=== PATIENT | male | born 1965 | race Caucasian/White ===

== ENCOUNTER 2019-09-01 04:54 | Emergency (ER) | payer SELFPAY ==
[~2019-09-01] VITALS: Ht 160 cm; Wt 85.0 kg
[2019-09-01 05:05] VITALS: BP 150/98
[2019-09-01] MEDS ORDERED: PREDNISONE 10MG TABLET PO ONE (05:30)
[2019-09-01] MEDS ORDERED: DIPHENHYDRAMINE 25MG CAPSULE PO ONE (05:30)
== END 2019-09-01 06:45 | disposition home or self-care (01) ==
LOC: ER 04:54
DX: R22.0 Localized swelling, mass and lump, head (principal); E78.00 Pure hypercholesterolemia, unspecified; Z91.010 Allergy to peanuts; T50.905A Adverse effect of unspecified drugs, medicaments and biological substances, initial encounter; Y92.018 Other place in single-family (private) house as the place of occurrence of the external cause
CPT/HCPCS: 99283; J7512; Q0163